=== PATIENT | male | born 1995 | race Caucasian/White ===

== ENCOUNTER 2019-10-29 08:27 | Outpatient (CLI) | payer BC ==
--- NOTE | 2019-10-29 10:42 | ULT ---
THYROID ULTRASOUND: Date: 10/29/2019 INDICATION: Abnormal labs. FINDINGS: Both lobes of the thyroid show a normal homogeneous echotexture. Both lobes have normal size. The rig ht lobe measures 4.9 x 1.6 x 1.3 cm. The left lobe measures 4.3 x 1.5 x 1.5 cm. Single tiny cyst is seen in the mid right lobe which measures approximately 3-4 mm. No other thyroid mass or nodule. IMPRESSION: Tiny cyst in the mid right lobe of thyroid. Both lobes of thyroid otherwise unremarkable. POS: AGW
== END 2019-10-29 08:28 | disposition home or self-care (01) ==
LOC: BICULT 08:27
PROVIDERS: ATTEND Family Medicine
DX: R94.6 Abnormal results of thyroid function studies (principal); E04.1 Nontoxic single thyroid nodule
CPT/HCPCS: 76536